=== PATIENT | female | born 2000 | race Caucasian/White ===

== ENCOUNTER 2022-09-06 09:35 | Inpatient (IN) | payer OTHER, SELFPAY ==
[2022-09-06] VITALS (11 sets, daily range): BP systolic 112–138; BP diastolic 57–88; PULSE 57–86; TEMP 35.9–36.9; O2SAT 98; BMI 39.0
[2022-09-06] MEDS: 0.9% Saline Lock 10 ML Syringe IV (10:55)
[2022-09-06 11:14] LABS: Absolute Lymphocyte Count 1.33 X10^3/uL (0.83-4.51); Absolute Neutrophil Count 5.3 X10^3/uL (2.0-7.7); Basophil# 0.02 X10^3/uL; Basophil% 0.3 % (0-1); Eosinophil# 0.03 X10^3/uL; Eosinophils% 0.4 % (0-5); Hematocrit 38.5 % (37-47); Lymphocyte # 1.33 X10^3/ul (0.83-4.51); Lymphocyte % 18.8 % (19-41); Mean Corp Hgb Conc 33.8 g/dL (32-36); Mean Corpuscular Hgb 27.5 pg (27.0-32.0); Mean Corpuscular Volume 81.4 fL (81-99); Mean Platelet Vol. 9.2 fl (6.2-12.0); Monocyte# 0.41 X10^3/uL; Monocyte% 5.8 % (0-10); NRBC Flagged by Analyzer 0 % (0-5); Neutrophil # 5.27 X10^3/uL (2.7-7.7); Neutrophil % 74.3 % (47-70); Platelet Count 177 K/mm3 (150-450); RBC Distribution Width CV 13.2 % (11.6-14.6); Red Blood Count 4.73 M/mm3 (4.2-5.4); White Blood Count 7.1 K/mm3 (4.4-11.0)
[2022-09-06] MEDS: miSOPROStol 25 MCG TABLET PO ×2 (11:53→16:20)
--- NOTE | 2022-09-06 11:55 | HP.PCM.OB_ITS ---
HPI - General General Date of Admission: 09/06/22 HPI Narrative MARIEL ARANDA, is a 21 F at 40.1 weeks gestation who presents for elective induction of labor. complicated by obesity, rubella non- immune status, GBS positive and history of depression. Patient was scheduled for induction earlier this week but due to unit acuity was bumped to today due to being elective. Maternal Data Information MARINA Calculator Estimated Delivery Date Method Current WG Current Estimate 09/05/22 Manual 40w 1d PFSH PFS Medical History (Updated 09/06/22 @ 18:07 by Rhonda Vo CNM) Depression Home Medications PNV 153-FA 400 mcg-om3 35 mg-dha 25 mg-epa 5 mg-fish oil chew tablet ( Gummies) 2 tab PO DAILY 09/06/22 [History Last Taken 2 Days Ago ~09/04/22] aspirin 81 mg chewable tablet 81 mg PO DAILY elevated bp 09/06/22 [History Last Taken 09/05/22 20:00] ferrous sulfate 325 mg (65 mg iron) tablet 325 mg PO QODAY low iron 09/06/22 [History Last Taken 1 Day Ago ~09/05/22] melatonin 2.5 mg-passion flower-lemon balm chewable tablet (Unisom Simple Slumbers) 1 tab PO PRN PRN Insomnia 09/06/22 [History Last Taken 3 Weeks Ago ~08/16/22] vitamin B6-vitamin E-magnesium tablet 1 tab PO QODAY PRN Nausea 09/06/22 [History Last Taken 1 Week Ago ~08/30/22] Allergy/AdvReac Type Severity Reaction Status Date / Time No Known Allergies Allergy Verified 09/06/22 11:44 Social History Smoking Status: Former smoker History Elective abortions Hx Para 0 Spontaneous abortions Hx # Term Pregnancies Ectopic pregnancies Hx # Pregnancies Multiple births # of living children Visit Details OB Flowsheet Initial Weight: Not Recorded Date -?-?-?-?-?-?-?-?-?-?-?-?- EGA Weight BP Urine Prot -?-?-?-?-?-?-?-?-?-?-?-?- Glucose FHR FuHt Pres Dilation -?-?-?-?-?-?-?-?-?-?-?-?- Effaced St Visit Note 09/06/22 -?-?-?-?-?-?-?-?-?-?-?-?- 40w 1d 264 lb 5.348 oz 121/ 67 112/57 114/57 -?-?-?-?-?-?-?-?-?-?-?-?- -?-?-?-?-?-?-?-?-?-?-?-?- NST FHR Rate Baby A Baseline: 125 Variability:: Moderate Accelerations:: 15 x 15 Decelerations:: None NST Reactive:: Yes FHR Category:: Category I Uterine Activity:: none noted ROS Eyes Eyes: Denies blurry vision, change in vision or spots in vision ENT HEENT: Denies dizziness or headache(s) Cardiovascular Cardiovascular: Denies abdominal pain, chest pain or dyspnea Respiratory/Chest Respiratory/Chest: Denies cough, dyspnea, shortness of breath at rest or shortness of breath with exertion Gastrointestinal Gastrointestinal: Denies abdominal pain, diarrhea or vomiting Genitourinary Genitourinary: Denies change in urinary stream, difficulty urinating or dysuria Musculoskeletal Musculoskeletal: Reports none Integumentary Integumentary: Denies rash Neurologic Neurologic: Denies dizziness, headache(s), memory loss or weakness Psychiatric Psychiatric: Reports none Vital Signs Vital Signs Vital Signs: 09/06/22 10:00 09/06/22 10:00 09/06/22 09:59 Temperature 98.4 F Temperature Source Pulse Rate 85 Blood Pressure 121/67 H BP Systolic 121 BP Diastolic 67 Pulse Ox 09/06/22 10:00 09/06/22 10:00 09/06/22 10:00 Temperature Temperature Source Temporal Pulse Rate 86 Blood Pressure BP Systolic BP Diastolic Pulse Ox 98 09/06/22 10:00 09/06/22 12:28 09/06/22 12:29 Temperature 98.5 F 97.9 F Temperature Source Pulse Rate Blood Pressure 112/57 L BP Systolic 112 BP Diastolic 57 Pulse Ox 09/06/22 12:29 09/06/22 16:07 09/06/22 16:07 Temperature Temperature Source Pulse Rate 80 75 Blood Pressure 114/57 L BP Systolic 114 BP Diastolic 57 Pulse Ox 09/06/22 16:09 Temperature 97.7 F L Temperature Source Pulse Rate Blood Pressure BP Systolic BP Diastolic Pulse Ox Weight Weight: 264 lb 5.348 oz Body Mass Index (BMI) 39.0 Physical Exam Const alert, oriented x3 and no apparent distress General Appearance: cooperative Orientation / Consciousness: awake Exam Limitations: no limitations HEENT normocephalic Head and Scalp: normal to inspection Eyes General Eye: normal appearance of both eyes Neck full ROM and no lymphadenopathy Lymph Lymphatic: no lymphadenopathy noted Chest inspection of chest normal Resp normal respiratory effort, normal air movement and clear to auscultation bilaterally Effort and Inspection: able to speak in complete sentences and symmetric chest movement Cardio regular rate and regular rhythm GI normal to inspection, nondistended, normoactive bowel sounds Back/Spine normal ROM Extremity full ROM and no calf tenderness Skin no rashes or lesions noted General Skin Exam: no breakdown Neuro oriented x3 and CN's II-XII intact bilaterally Psych mental status grossly normal and thought process normal Labs Labs Labs: Blood Type A NEGATIVE Antibody Screen NEGATIVE Hct 38.5 % (37-47) Hgb 13.0 g/dL (12.0-15.0) Assessment & Plan (1) 40 weeks gestation of : (2) Encounter for planned induction of labor: (3) Obesity affecting : (4) Rubella non-immune status, antepartum: (5) Positive GBS test: (6) Depression: COMMENT: no medications (7) Rh negative status during : PLAN: Plan Admit to L&D CE- 0.5/60/-3 Cat. 1 tracing, reactive Start IV and run fluids per orders Routine labs Start Cytotec 25 mcg PO every 4 hours CE prior to cytotec doses GBS positive- Start PCN 5 million units IV x 1 now and continue PCN 3 million units IV every 4 hours until delivery Pain medications if indicated Dr. Bhatia notified of admission and is collaborating physician
[2022-09-06] MEDS: 0.9% Normal Saline Single 100 ML IV.SOLN. INTRA-UTER (15:34)
--- NOTE | 2022-09-06 15:43 | PCM.PN.BLA ---
Progress Note Pt doing well. Cramping with Cytotec. Physical Exam Const alert and no apparent distress General Appearance: comfortable Narrative: Cvx 1/t/h, posterior Assessment & Plan Assessment/Plan (1) Encounter for planned induction of labor: PLAN: TAUS performed at bedside confirming vertex presentation. Cvx 1/t/h, posterior s/p 1 dose of Cytotec. Intracervical carnes placed in usual fashion and filled with 40 cc saline. Will give 2nd dose of Cytotec around 1600. (2) 40 weeks gestation of : (3) Obesity affecting :
[2022-09-06] MEDS: LACTATED RINGERS 500 ML 999 ML IV (17:20)
[2022-09-06] MEDS: Ondansetron 4 MG/2 ML Vial IV (17:24)
[2022-09-06] MEDS: fentaNYL 100 MCG/2 ML Ampul IV (17:33)
[2022-09-06] MEDS: Lactated Ringers 1,000 ML 50 ML IV (17:52)
[2022-09-06] MEDS: Acetaminophen 500 MG Tablet PO (20:28)
[2022-09-06] MEDS: Mag Hydrox/Al Hydrox/Simeth 30 ML UDC PO (22:19)
[2022-09-06] MEDS: Oxytocin 15 Units/NS 250ml 15 UNITS/250 ML IV.SOLN 2 UNITS IV (22:40)
[2022-09-07] VITALS (90 sets, daily range): BP systolic 106–156; BP diastolic 53–80; PULSE 58–116; RESP 18; TEMP 35.9–36.8; O2SAT 92–100
[2022-09-07] MEDS: 0.9% Saline Lock 10 ML Syringe IV ×2 (00:55→19:06)
[2022-09-07] MEDS: fentaNYL 100 MCG/2 ML Ampul IV (00:55)
[2022-09-07] MEDS: Ondansetron 4 MG/2 ML Vial IV (01:48)
[2022-09-07] MEDS: LACTATED RINGERS 500 ML 999 ML IV ×4 (01:54→14:31)
[2022-09-07] MEDS: fentaNYL-bupivacaine (epidural) 100 ML BAG EPIDURAL ×3 (02:44→12:04)
[2022-09-07] MEDS: Penicillin G 3,000,000 Units 50 ML 100 UNITS IV ×3 (03:11→12:04)
[2022-09-07] MEDS: Mag Hydrox/Al Hydrox/Simeth 30 ML UDC PO ×2 (03:52→10:20)
[2022-09-07] MEDS: Lactated Ringers 1,000 ML 200 ML IV ×3 (05:02→13:14)
--- NOTE | 2022-09-07 06:55 | PCM.PN.BLA ---
Progress Note Patient seen at bedside. Comfortable with epidural. Assessment & Plan Assessment/Plan (1) 40 weeks gestation of : (2) Encounter for planned induction of labor: (3) Obesity affecting : PLAN: Plan CE- 5//-2 AROM for moderate amount of meconium stained fluid IUPC placed deceleration due to patient being on back- resolved with position change, fluid bolus, Pitocin off and O2 10 liters via face mask Continue expectant care Dr. Jas valdes who is taking over management of patient
--- NOTE | 2022-09-07 08:33 | PN.OBGYN_ITS ---
Subjective Subjective Patient comfortable with epidural Objective Data Objective Data Vital Signs: Vital Signs Temp Pulse BP Pulse Ox 97.0 F L 84 118/56 L 100 09/07/22 07:36 09/07/22 08:29 09/07/22 07:35 09/07/22 08:29 Weight: 264 lb 5.348 oz Body Mass Index (BMI) 39.0 Intake & Output: Intake and Output for Last 24 Hours 09/05/22 09/06/22 09/07/22 23:59 23:59 23:59 Intake Total 2000.00 / 1999.00 2650.01 / 2650.01 Output Total 1350 / 1350 400 / 400 Balance 650.00 / 650.00 2250.01 / 2250.01 Lab / Micro Data Result Diagrams: 09/06/22 10:55 Labs: Laboratory Results - last 24 hr 09/06/22 10:55: WBC 7.1, RBC 4.73, Hgb 13.0, Hct 38.5, MCV 81.4, MCH 27.5, MCHC 33.8, RDW Std Deviation 39.0, RDW Coeff of Tony 13.2, Plt Count 177, MPV 9.2, Immature Gran % (Auto) 0.400, Neut % (Auto) 74.3 H, Lymph % (Auto) 18.8 L, [place] % (Auto) 5.8, Eos % (Auto) 0.4, Baso % (Auto) 0.3, Absolute Neuts (auto) 5.3, Absolute Lymphs (auto) 1.33, Nucleated RBC % 0 09/06/22 10:55: Blood Type A NEGATIVE, Antibody Screen NEGATIVE Physical Exam Narrative: cvx 6/90/0, s/p AROM by Cplotts at 06:45 when patient was 5/80/-2 NST FHR Rate Baby A Baseline: 110 Variability:: Moderate Accelerations:: 15 x 15 Decelerations:: Late (have resolved) and Variable (occasional) Uterine Activity:: Q4 Assessment & Plan (1) Obesity affecting : COMMENT: @ 40&2 PLAN: Plan Continue expectant management Overall reassuring monitoring
[2022-09-07] MEDS: Methylergonovine 0.2 MG/ML Ampul IM (15:36)
--- NOTE | 2022-09-07 15:47 | EX.PCM.OBRPT ---
Maternal Data Information MARINA Calculator Estimated Delivery Date Method Current WG Current Estimate 09/05/22 Manual 40w 2d Vaginal Delivery Maternal Presentation Maternal Presentation: Elective Induction Type of Induction: Pitocin, Silva Bulb, Amniotomy and Cytotec Operative Information Date of Procedure: 09/07/22 Pre-Operative Diagnosis: Obesity Post-Operative Diagnosis: Same Surgery / Procedure Performed: Spontaneous Vaginal Delivery Type of Anesthesia: Epidural Estimated Blood Loss: 500ml Findings Description of Procedure: Patient prepped & draped when C/C/+2. She pushed well to deliver the head. head gently guided to allow delivery of anterior and posterior shoulders. No excess traction placed on head. Body delivered and 3VC clamped & cut in delayed fashion. Placenta delivered with gentle traction and good uterine tone obtained. Presentation: Vertex Amniotic Membrane Rupture Type: Artificial Amniotic Fluid Description: Moderate meconium Placental Delivery Description: Expressed Placenta Disposition: [facility] Specimen(s) Removed: Placenta Cord Vessel Description: 3 Vessels Cord Entanglement: Around neck x 1, loose Nuchal Cord Compression: Without compression A Gender: Female (1 minute): 8 (5 minute): 9 Delayed Cord Clamping: Yes Post Vaginal Delivery Medications Given After Delivery: IV Pitocin and IM Methergin Episiotomy Description: None Laceration: 1st degree (vaginal repaired - with 3-0 vicryl) Complication Complications: None
[2022-09-07] MEDS: Oxytocin 15 Units/NS 250ml 15 UNITS/250 ML IV.SOLN 83 UNITS IV (15:58)
[2022-09-07] MEDS: Ibuprofen 600 MG Tablet PO (17:59)
[2022-09-08] VITALS (10 sets, daily range): BP systolic 107–121; BP diastolic 53–75; PULSE 73–89; RESP 16–18; TEMP 36.1–36.6; O2SAT 98–99
[2022-09-08] MEDS: Ibuprofen 600 MG Tablet PO ×3 (00:17→13:32)
--- NOTE | 2022-09-08 16:16 | PCM.PN.OB ---
Subjective Subjective Denies complaints Objective Data Objective Data Vital Signs: Vital Signs Temp Pulse Resp BP Pulse Ox O2 Del Method 97.3 F L 87 16 121/75 H 98 Room Air 09/08/22 13:05 09/08/22 16:14 09/08/22 13:04 09/08/22 16:14 09/08/22 16:13 09/08/22 13:04 Oxygen Delivery Method Room Air Weight: 264 lb 5.348 oz Body Mass Index (BMI) 39.0 Intake & Output: Intake and Output for Last 24 Hours 09/06/22 09/07/22 09/08/22 23:59 23:59 23:59 Intake Total 2000.00 / 1999.00 4405.00 / 4405.00 Output Total 1350 / 1350 1550 / 1550 300 / 300 Balance 650.00 / 650.00 2855.00 / 2855.00 -300 / -300 Lab / Micro Data Result Diagrams: 09/06/22 10:55 Labs: Laboratory Results - last 24 hr 09/08/22 01:10: Screen NEGATIVE, Baby's Blood Type A POSITIVE, Baby's ANGELICA NEGATIVE Physical Exam Const alert, oriented x3 and no apparent distress HEENT normocephalic GI soft to palpation, non-tender and non-distended GI Narrative: fundus firm, mid & below umbilicus Extremity normal to inspection and no calf tenderness Assessment & Plan (1) Obesity affecting : COMMENT: PPD#1 PLAN: Plan D/c home
--- NOTE | 2022-09-08 16:17 | DCINST_ITS ---
Discharge Instructions Diet Discharge Diet: No restrictions Activity Discharge Activity: May Shower May resume sexual activity in: 6 weeks Weight Bearing Status: Weight bearing as tolerated Dressing / Incision Call your doctor if you observe: Fever of 101 or Higher, Coldness, Increased Pain, Change in Color, Inability to urinate, Inability to have a bowel movement, Using more than 1 pad per hour, Shortness of breath, Dizziness, Fainting spells, Chest pain, Increased palpitations (irregular heartbeat), Calf discomfort and Uncontrolled pain Follow Up Care Please Follow Up With: Isaias Mark MD When: Follow up in 2 and 6 weeks for visits. Test Results: Test results from this visit will be discussed in further detail at your follow- up appointment, if applicable. Discharge Plan Admission Admit Date/Time: 09/06/22 09:35 Primary Reason for Your Visit: Vaginal delivery Attending Provider: Isaias Mark Primary Care Provider: Agnes Boyer Primary Discharge Orders/Prescriptions Prescriptions: New acetaminophen 500 mg Tablet 1,000 mg PO Q6H PRN PRN (Reason: Pain 1-10 Or Fever) Qty: 0 0RF ibuprofen 600 mg Tablet 600 mg PO Q6H PRN PRN (Reason: Pain Score 1-3) Qty: 0 0RF Continued Gummies 400 mcg-35 mg- 25 mg-5 mg Tablet,Chewable 2 tab PO DAILY Discontinued ferrous sulfate 325 mg (65 mg iron) Tablet 325 mg PO QODAY aspirin [Baby Aspirin] 81 mg Tablet,Chewable 81 mg PO DAILY vitamin B6-vitamin E-magnesium Tablet 1 tab PO QODAY PRN (Reason: Nausea) Unisom Simple Slumbers 2.5 mg Tablet,Chewable 1 tab PO PRN PRN (Reason: Insomnia) Referrals / Follow Up: Care Physician,No Primary [Primary Care Provider] - Disposition Disposition (needs filled in before D/C Order can be placed): Home, Self Care
== END 2022-09-08 17:00 | disposition home or self-care (01) | DRG 807 ==
PROVIDERS: Advanced Practice Midwife; Admitting Provider Obstetrics & Gynecology; Visit Provider Obstetrics & Gynecology
DX: O48.0 Post-term pregnancy (principal); Z37.0 Single live birth; E66.9 Obesity, unspecified; O99.214 Obesity complicating childbirth; O77.0 Labor and delivery complicated by meconium in amniotic fluid; Z3A.40 40 weeks gestation of pregnancy; O76 Abnormality in fetal heart rate and rhythm complicating labor and delivery; O99.824 Streptococcus B carrier state complicating childbirth; Z79.82 Long term (current) use of aspirin; Z87.891 Personal history of nicotine dependence; O70.0 First degree perineal laceration during delivery
CPT/HCPCS: 59025; 59050; 76815; 85025; 85461; 86850; 86900; 86901; 99221; J7120; A4216; G0378; J2405; J2790

== ENCOUNTER 2022-11-10 19:04 | Emergency (ER) | payer OTHER, SELFPAY ==
[2022-11-10 19:05] VITALS: BP 146/75; PULSE 79; RESP 14; TEMP 36.1; O2SAT 100; BMI 40.8
--- NOTE | 2022-11-10 19:20 | EKG12_ITS ---
Test Reason : Blood Pressure : / mmHG Vent. Rate : 071 BPM Atrial Rate : 071 BPM P-R Int : 112 ms QRS Dur : 076 ms QT Int : 382 ms P-R-T Axes : 013 053 043 degrees QTc Int : 415 ms Normal sinus rhythm Normal ECG Confirmed by BRETT FAITH, ASH ([id number]), assistant film editor JUAN CALIXTO ([id number]) on 11/12/2022 12:10:21 P M Referred By: Confirmed By:COOKIE WEST MD
--- NOTE | 2022-11-10 19:30 | EKG12_ITS ---
Test Reason : Blood Pressure : / mmHG Vent. Rate : 065 BPM Atrial Rate : 065 BPM P-R Int : 122 ms QRS Dur : 082 ms QT Int : 390 ms P-R-T Axes : 016 051 042 degrees QTc Int : 405 ms Normal sinus rhythm Normal ECG No previous ECGs available Confirmed by RON FAITH, MARILUZ ([id number]), scientific publications editor JUAN CALIXTO ([id number]) on 11/14/2022 8:29:15 AM Referred By: Confirmed By:MARILUZ VELASQUEZ MD
--- NOTE | 2022-11-10 19:37 | ED.VIS.CHEST ---
HPI <Walker You MD - Last Filed: 11/10/22 21:19> History of Present Illness Chief Complaint: Chest Pain Narrative Narrative: 21-year-old female who denies significant past medical history presents with back tightness and chest tightness that she has had since 10 AM. She states her back started feeling tight, then it moved to the middle of her chest. She denies any diaphoresis, no nausea or vomiting, but she feels short of breath. She denies any leg swelling. No fevers or chills. No cough. She thinks that her grandfather had a heart attack a few years ago. No family history of early coronary artery disease. She denies any DVT or PE risk factors. No true exacerbating or alleviating factors to her chest tightness. She states that she took a shower earlier, and felt better until she got out of the shower. She took 2 full-strength aspirin which did not alleviate her pain. She recently took Tylenol to help alleviate her tightness in her chest and back. PFSH <Walker Yuo MD - Last Filed: 11/10/22 21:19> PFSH Medical History Depression Rh negative status during Home Medications PNV 153-FA 400 mcg-om3 35 mg-dha 25 mg-epa 5 mg-fish oil chew tablet ( Gummies) 2 tab PO DAILY 09/06/22 [History Last Taken 2 Days Ago ~09/04/22] acetaminophen 500 mg tablet 1,000 mg PO Q6H PRN PRN Pain 1-10 Or Fever #0 tabs 09/08/22 [Rx Last Taken Unknown] ibuprofen 600 mg tablet 600 mg PO Q6H PRN PRN Pain Score 1-3 #0 tabs 09/08/22 [Rx Last Taken Unknown] Allergy/AdvReac Type Severity Reaction Status Date / Time No Known Allergies Allergy Verified 11/10/22 19:05 Social History Smoking Status: Former smoker ROS <Walker You MD - Last Filed: 11/10/22 21:19> ROS ED ROS Narrative Constitutional: No fever, no chills. HEENT: No sore throat. No neck pain. No loss of vision. No rhinorrhea. Cardiovascular: Thoracic back tightness, central substernal chest tightness/chest pain. No palpitations. No pedal edema. Respiratory: No cough, mild shortness of breath. Abdominal: No abdominal pain. No nausea. No vomiting. Genitourinary: No dysuria. No hematuria. Musculoskeletal: No myalgias. No arthralgias. Neurologic: No headaches. No dizziness. No lightheadedness. Skin: No rash. No change in color. Psychiatric: No depression. No anxiety. EXAM <Walker You MD - Last Filed: 11/10/22 21:19> Physical Exam Narrative Exam Narrative: Afebrile. Vital signs noted. HEENT: Normocephalic. Atraumatic. PERRL, EOMI. Neck soft and supple. No point tenderness or step off. Cardiovascular: Regular rate and rhythm. No murmurs, rubs, or gallops appreciated. Respiratory: No tachypnea. Lungs clear to auscultation bilaterally. Gastrointestinal: Abdomen soft, nontender, with normoactive bowel sounds. No rebound or guarding. Neurological: Awake. Alert. Nonfocal, nonlateralizing. Skin: No rash. Normal color. No pallor. Musculoskeletal: No pedal edema. Full range of motion extremities. Const Vital Signs: 11/10/22 19:05 11/10/22 19:43 11/10/22 19:43 Temperature 97 F L Temperature Source Temporal Pulse Rate 79 Respiratory Rate 14 Blood Pressure 146/75 H Blood Pressure Mean 98 Pulse Ox 100 Oxygen Delivery Method Room Air Room Air Room Air 11/10/22 20:28 Temperature Temperature Source Pulse Rate 57 L Respiratory Rate 15 Blood Pressure 125/71 H Blood Pressure Mean 89 Pulse Ox 99 Oxygen Delivery Method Room Air <Dr. Margie Chambers MD - Last Filed: 11/10/22 22:35> Physical Exam Const Vital Signs: 11/10/22 19:05 11/10/22 19:43 11/10/22 19:43 Temperature 97 F L Temperature Source Temporal Pulse Rate 79 Respiratory Rate 14 Blood Pressure 146/75 H Blood Pressure Mean 98 Pulse Ox 100 Oxygen Delivery Method Room Air Room Air Room Air 11/10/22 20:28 Temperature Temperature Source Pulse Rate 57 L Respiratory Rate 15 Blood Pressure 125/71 H Blood Pressure Mean 89 Pulse Ox 99 Oxygen Delivery Method Room Air <Walker You MD - Last Filed: 11/10/22 21:19> Heart Score History: Slightly/Non-Suspicious ECG: Normal Age: </= 45 years Risk Factors: No Risk Factors Troponin: </= Normal Limit Score: 0 <Dr. Margie Chambers MD - Last Filed: 11/10/22 22:35> Heart Score Score: 0 MDM <Walker You MD - Last Filed: 11/10/22 21:19> [facility] Narrative Medical decision making narrative: In the differential diagnosis is acute coronary syndrome versus pulmonary embolism versus bronchospasm. Bronchospasm is less likely as her pulse ox is 100% on room air, and she has no auscultated wheezing and is moving a good amount of air. Pulmonary embolism is also lower on the differential because she is essentially PERC negative, pulse ox 100% on room air, and she denies any DVT/PE risk factors. Additionally, it is less likely coronary artery syndrome/STEMI as she has an EKG interpreted by myself that shows normal sinus rhythm at 71 bpm without ectopy or acute ST changes. No STEMI. No ischemic changes. As her EKG is negative and she is at a young age, it is less likely a STEMI. Regardless, comprehensive work-up was pursued. She has already taken full-strength aspirin. I will obtain a chest x-ray as well as lab work including CBC, BMP, and troponin with 2-hour troponin for delta, and a D-dimer. I reviewed the patient's laboratory work. She has a normal white count of 6.6, hemoglobin slightly anemic at 11.4 with hematocrit 35.5. Normal platelet count of 255. D-dimer is negative at 0.31. In review of her BMP, she has normal sodium of 141, normal potassium of 3.9, with chloride slightly elevated at 109. BUN is normal at 14 with creatinine 0.8. Initial high-sensitivity troponin is 4. I will obtain a delta troponin. I have low suspicion for pulmonary embolism given the negative D-dimer, and bradycardia with pulse ox 99 to 100% on room air. I interpreted her single view chest x-ray as no pneumothorax or no pneumonia. I reviewed the radiology report which confirmed my independent interpretation. At this point in time, upon repeat examination she states she still felt tightness in her back and chest which was more muscular. She is not having problems with shortness of breath coming from her lungs. She was administered Toradol 30 mg intravenously and an oral muscle relaxer in the form of Flexeril 10 mg intravenously should she be having muscular back tightness. At this point in time, she will be signed out to the oncoming physician, Dr. Margie Chambers, to check the delta troponin. I feel that as long as it is negative that she could be discharged to follow-up with her primary care physician. She has a low heart score. Disposition is pending repeat troponin. Patient is in stable condition. History & Record Review Discussion w/independent historian: Patient and Significant other Additional record(s) reviewed:: Prior inpatient record (Noncontributory, from [facility]) Lab Data Attestation: I reviewed the patient's lab results. Labs: Laboratory Results - last 24 hr 11/10/22 11/10/22 11/10/22 19:30 19:30 19:30 WBC 6.6 RBC 4.48 Hgb 11.4 L Hct 35.5 L MCV 79.2 L MCH 25.4 L MCHC 32.1 RDW Std Deviation 37.4 RDW Coeff of Tony 13.2 Plt Count 225 MPV 8.9 Immature Gran % (Auto) 0.200 Neut % (Auto) 55.3 Lymph % (Auto) 35.4 [place] % (Auto) 7.4 Eos % (Auto) 1.1 Baso % (Auto) 0.6 Absolute Neuts (auto) 3.7 Absolute Lymphs (auto) 2.35 Nucleated RBC % 0 D-Dimer Quant (PE/DVT) 0.31 Sodium 141 Potassium 3.9 Chloride 109 H Carbon Dioxide 24.0 Anion Gap 8 BUN 14 Creatinine 0.80 Estim Creat Clear Calc 106.36 Est GFR (MDRD) Af Amer 113 Est GFR (MDRD) Non-Af 94 BUN/Creatinine Ratio 17.5 Glucose 96 Calcium 9.2 Troponin I High Sens 4 11/10/22 21:47 WBC RBC Hgb Hct MCV MCH MCHC RDW Std Deviation RDW Coeff of Tony Plt Count MPV Immature Gran % (Auto) Neut % (Auto) Lymph % (Auto) [place] % (Auto) Eos % (Auto) Baso % (Auto) Absolute Neuts (auto) Absolute Lymphs (auto) Nucleated RBC % D-Dimer Quant (PE/DVT) Sodium Potassium Chloride Carbon Dioxide Anion Gap BUN Creatinine Estim Creat Clear Calc Est GFR (MDRD) Af Amer Est GFR (MDRD) Non-Af BUN/Creatinine Ratio Glucose Calcium Troponin I High Sens 5 Radiography Diagnostic Testing: Clinical Impression(s) from Imaging Studies Chest X-Ray 11/10/22 19:45 IMPRESSION: No radiographic evidence of acute cardiopulmonary disease. Electronically Signed: Juan Glez MD at 20:16 EDT , <Dr. Margie Chambers MD - Last Filed: 11/10/22 22:35> [facility] Lab Data Labs: Laboratory Results - last 24 hr 11/10/22 11/10/22 11/10/22 19:30 19:30 19:30 WBC 6.6 RBC 4.48 Hgb 11.4 L Hct 35.5 L MCV 79.2 L MCH 25.4 L MCHC 32.1 RDW Std Deviation 37.4 RDW Coeff of Tony 13.2 Plt Count 225 MPV 8.9 Immature Gran % (Auto) 0.200 Neut % (Auto) 55.3 Lymph % (Auto) 35.4 [place] % (Auto) 7.4 Eos % (Auto) 1.1 Baso % (Auto) 0.6 Absolute Neuts (auto) 3.7 Absolute Lymphs (auto) 2.35 Nucleated RBC % 0 D-Dimer Quant (PE/DVT) 0.31 Sodium 141 Potassium 3.9 Chloride 109 H Carbon Dioxide 24.0 Anion Gap 8 BUN 14 Creatinine 0.80 Estim Creat Clear Calc 106.36 Est GFR (MDRD) Af Amer 113 Est GFR (MDRD) Non-Af 94 BUN/Creatinine Ratio 17.5 Glucose 96 Calcium 9.2 Troponin I High Sens 4 11/10/22 21:47 WBC RBC Hgb Hct MCV MCH MCHC RDW Std Deviation RDW Coeff of Tony Plt Count MPV Immature Gran % (Auto) Neut % (Auto) Lymph % (Auto) [place] % (Auto) Eos % (Auto) Baso % (Auto) Absolute Neuts (auto) Absolute Lymphs (auto) Nucleated RBC % D-Dimer Quant (PE/DVT) Sodium Potassium Chloride Carbon Dioxide Anion Gap BUN Creatinine Estim Creat Clear Calc Est GFR (MDRD) Af Amer Est GFR (MDRD) Non-Af BUN/Creatinine Ratio Glucose Calcium Troponin I High Sens 5 Radiography Diagnostic Testing: Clinical Impression(s) from Imaging Studies Chest X-Ray 11/10/22 19:45 IMPRESSION: No radiographic evidence of acute cardiopulmonary disease. Electronically Signed: Juan Glez MD at 20:16 EDT , Treatment and Re-Evaluation :: Patient signed out to me pending delta troponin. Repeat troponin returns at 5, initial troponin 4. Patient will be discharged to home per Dr. You's plan. Discharge Plan Triage Chief Complaint: Chest Pain ED Provider: Walker You Dx/Rx/DC Orders Clinical Impression: Chest pain, Back tightness, Shortness of breath Instructions: ED Chest Pain, Uncertain Cause, ED Dyspnea, ED Pain, Acute, Uncertain Cause Prescriptions: No Action Gummies 400 mcg-35 mg- 25 mg-5 mg Tablet,Chewable 2 tab PO DAILY acetaminophen 500 mg Tablet 1,000 mg PO Q6H PRN PRN (Reason: Pain 1-10 Or Fever) Qty: 0 0RF ibuprofen 600 mg Tablet 600 mg PO Q6H PRN PRN (Reason: Pain Score 1-3) Qty: 0 0RF Primary Care Provider: Care Physician,No Primary Referrals: Joyce Bee MD [Med Staff - Active Staff] - As Needed Care Physician,No Primary [Primary Care Provider] - Disposition Disposition: Home, Self Care
[2022-11-10] MEDS: 0.9% Normal Saline 1,000 ML 1000 ML IV (19:41)
[2022-11-10 19:44] LABS: Absolute Lymphocyte Count 2.35 X10^3/uL (0.83-4.51); Absolute Neutrophil Count 3.7 X10^3/uL (2.0-7.7); Basophil# 0.04 X10^3/uL; Basophil% 0.6 % (0-1); Eosinophil# 0.07 X10^3/uL; Eosinophils% 1.1 % (0-5); Hematocrit 35.5 % (37-47); Hemoglobin 11.4 g/dL (12.0-15.0); Lymphocyte # 2.35 X10^3/ul (0.83-4.51); Lymphocyte % 35.4 % (19-41); Mean Corp Hgb Conc 32.1 g/dL (32-36); Mean Corpuscular Hgb 25.4 pg (27.0-32.0); Mean Corpuscular Volume 79.2 fL (81-99); Mean Platelet Vol. 8.9 fl (6.2-12.0); Monocyte# 0.49 X10^3/uL; Monocyte% 7.4 % (0-10); NRBC Flagged by Analyzer 0 % (0-5); Neutrophil # 3.68 X10^3/uL (2.7-7.7); Neutrophil % 55.3 % (47-70); Platelet Count 225 K/mm3 (150-450); RBC Distribution Width CV 13.2 % (11.6-14.6); RBC Distribution Width SD 37.4 fl (35.1-43.9); Red Blood Count 4.48 M/mm3 (4.2-5.4); White Blood Count 6.6 K/mm3 (4.4-11.0)
--- NOTE | 2022-11-10 19:45 | RAD_ITS ---
EXAM: XR CHEST, 1 VIEW CLINICAL INDICATION: chest pain TECHNIQUE: Frontal view of the chest. This report was created using [employer] report generation technology. COMPARISON: None. FINDINGS: LUNGS AND PLEURAL SPACES: Unremarkable. No consolidation or edema. No pneumothorax. No effusion. HEART: Unremarkable. Cardiac silhouette not enlarged. MEDIASTINUM: Central airways and mediastinal contour are unremarkable. BONES/JOINTS: Unremarkable. SOFT TISSUES: Unremarkable. RAD/Chest 1 View (Portable) IMPRESSION: No radiographic evidence of acute cardiopulmonary disease. Electronically Signed: Juan Glez MD at 20:16 EDT ,
[2022-11-10 19:57] LABS: D-Dimer Quantitative (DVT/PE) 0.31 FEU/ug/m (0.27-0.49)
[2022-11-10 19:59] LABS: Anion Gap 8 (5-15); BUN 14 mg/dL (7-18); BUN/Creat Ratio 17.5 RATIO (10-20); Calcium,Total 9.2 mg/dL (8.5-10.1); Chloride 109 mmol/L (98-107); EST Glomerular Filtration Rate 94 mL/min (>60); Est Glom Filt Rate - Afr Amer 113 mL/min (>60); Estimated Creatinine Clearance 106.36 ml/min; Glucose 96 mg/dL (74-106); Potassium 3.9 mmol/L (3.5-5.1); Sodium Level 141 mmol/L (136-145); Troponin-I HS (w/2H Reflex) 4 pg/mL (3.0-54.0)
[2022-11-10] MEDS: Ketorolac 30 MG/ML Syringe IV (20:27)
[2022-11-10] MEDS: cycloBENZAPRine HCl 10 MG Tablet PO (20:27)
[2022-11-10 20:28] VITALS: BP 125/71; PULSE 57; RESP 15; O2SAT 99
[2022-11-10 21:38] LABS: Reflex Troponin-HS? (from REC) Y
[2022-11-10 22:12] LABS: Troponin-I HS 5 pg/mL (3.0-54.0)
[2022-11-10 23:01] VITALS: PULSE 81; RESP 16; O2SAT 99
== END 2022-11-10 23:02 | disposition home or self-care (01) ==
PROVIDERS: Emergency Provider Emergency Medicine; Visit Provider Emergency Medicine
DX: R07.9 Chest pain, unspecified (principal); R06.02 Shortness of breath; Z87.891 Personal history of nicotine dependence
CPT/HCPCS: 71045; 80048; 84484; 85025; 85379; 93005; 96361; 96374; 99285; J7030; A4216

== ENCOUNTER 2022-12-31 22:47 | Emergency (ER) | payer OTHER, SELFPAY ==
[2022-12-31 22:47] VITALS: BP 152/115; PULSE 69; RESP 24; TEMP 36.4; O2SAT 98; BMI 40.6
--- NOTE | 2022-12-31 22:50 | EKG12_ITS ---
Test Reason : CP Blood Pressure : / mmHG Vent. Rate : 071 BPM Atrial Rate : 071 BPM P-R Int : 134 ms QRS Dur : 070 ms QT Int : 382 ms P-R-T Axes : 014 042 039 degrees QTc Int : 415 ms Normal sinus rhythm with sinus arrhythmia Normal ECG Confirmed by BRETT FAITH, ASH ([id number]), editor index JUAN CALIXTO ([id number]) on 01/01/2023 1:15:31 PM Referred By: AUGUSTO Confirmed By:COOKIE WEST MD
--- NOTE | 2022-12-31 23:20 | RAD_ITS ---
INDICATION: Chest pain. EXAMINATION/TECHNIQUE: X-RAY - XR Chest 1 View COMPARISON: November 10, 2022 chest x-ray. FINDINGS: LINES/DEVICES: None. LUNGS: No consolidation, edema or effusion. No pneumothorax. MEDIASTINUM AND CARDIOVASCULAR STRUCTURES: Cardiac silhouette not enlarged. Central airways and mediastinal contour are unremarkable. BONES AND SOFT TISSUES: Unremarkable for age. RAD/Chest 1 View (Portable) IMPRESSION: No acute cardiopulmonary disease. Electronically Signed: Miguel Ángel Sutton MD at 23:35 EDT ,
[2022-12-31 23:34] LABS: Absolute Lymphocyte Count 1.66 X10^3/uL (0.83-4.51); Absolute Neutrophil Count 7.1 X10^3/uL (2.0-7.7); Basophil# 0.06 X10^3/uL; Basophil% 0.6 % (0-1); Eosinophil# 0.03 X10^3/uL; Eosinophils% 0.3 % (0-5); Hemoglobin 12.3 g/dL (12.0-15.0); Lymphocyte # 1.66 X10^3/ul (0.83-4.51); Lymphocyte % 17.6 % (19-41); Mean Corp Hgb Conc 31.5 g/dL (32-36); Mean Corpuscular Hgb 23.7 pg (27.0-32.0); Mean Corpuscular Volume 75.1 fL (81-99); Monocyte# 0.36 X10^3/uL; Monocyte% 3.8 % (0-10); NRBC Flagged by Analyzer 0 % (0-5); Neutrophil # 7.08 X10^3/uL (2.7-7.7); Neutrophil % 75.4 % (47-70); Platelet Count 255 K/mm3 (150-450); RBC Distribution Width CV 13.3 % (11.6-14.6); RBC Distribution Width SD 35.5 fl (35.1-43.9); Red Blood Count 5.19 M/mm3 (4.2-5.4); White Blood Count 9.4 K/mm3 (4.4-11.0)
[2022-12-31 23:47] LABS: Anion Gap 8 (5-15); BUN 12 mg/dL (7-18); BUN/Creat Ratio 14.4 RATIO (10-20); Calcium,Total 9.4 mg/dL (8.5-10.1); Chloride 108 mmol/L (98-107); Creatinine, Serum 0.83 mg/dL (0.55-1.02); EST Glomerular Filtration Rate 90 mL/min (>60); Est Glom Filt Rate - Afr Amer 108 mL/min (>60); Estimated Creatinine Clearance 101.64 ml/min; Glucose 113 mg/dL (74-106); Potassium 3.7 mmol/L (3.5-5.1); Sodium Level 140 mmol/L (136-145); Troponin-I HS (w/2H Reflex) 4 pg/mL (3.0-54.0)
--- NOTE | 2023-01-01 01:32 | ED.VIS.GI ---
HPI HPI - GI History of Present Illness Chief Complaint: Abd Pain Informant: patient Narrative Narrative: Abdominal pain radiating up into her chest that started about 20 hours ago or so after eating at work and is gotten worse. Vomited once. She states actually the discomfort started in her upper back and her lower chest, and then in her upper abdomen it has persisted and gotten worse. No lower abdominal pain. No urinary symptoms. No fevers or chills. She did eat after the discomfort started, did not seem to change the discomfort. States that she has had some of this before but never this bad. No history of any abdominal surgeries in the past. [facility] Medical History Depression Rh negative status during Home Medications PNV 153-FA 400 mcg-om3 35 mg-dha 25 mg-epa 5 mg-fish oil chew tablet ( Gummies) 2 tab PO DAILY 09/06/22 [History Last Taken 2 Days Ago ~09/04/22] acetaminophen 500 mg tablet 1,000 mg PO Q6H PRN PRN Pain 1-10 Or Fever #0 tabs 09/08/22 [Rx Last Taken Unknown] ibuprofen 600 mg tablet 600 mg PO Q6H PRN PRN Pain Score 1-3 #0 tabs 09/08/22 [Rx Last Taken Unknown] Allergy/AdvReac Type Severity Reaction Status Date / Time No Known Allergies Allergy Verified 12/31/22 22:49 Social History Smoking Status: Former smoker ROS ROS ED Constitutional Constitutional ED: Denies chills or fever(s) Eyes Eyes: Denies change in vision or diplopia ENT ENT ED: Denies rhinorrhea or sore throat Cardiovascular Cardiovascular: Reports chest pain; Denies palpitations Respiratory/Chest Respiratory/Chest: Denies cough or dyspnea Gastrointestinal Gastrointestinal: Reports abdominal pain, nausea and vomiting; Denies diarrhea, hematemesis, hematochezia or melena Genitourinary Genitourinary ED: Denies dysuria or hematuria Musculoskeletal Musculoskeletal: Reports back pain; Denies neck pain Integumentary Denies abscess or rash Neurologic Neurologic: Denies headache(s), paresthesias or weakness Psychiatric Psychiatric: Denies anxiety or suicidal thoughts EXAM Physical Exam Const Vital Signs: 12/31/22 22:47 01/01/23 01:46 01/01/23 01:46 Temperature 97.5 F L Temperature Source Temporal Pulse Rate 69 15 L Respiratory Rate 24 H Blood Pressure 152/115 H 109/74 Blood Pressure Mean 127 85 Pulse Ox 98 99 99 Oxygen Delivery Method Room Air Room Air Room Air 01/01/23 03:02 Temperature Temperature Source Pulse Rate 67 Respiratory Rate 15 Blood Pressure 108/77 Blood Pressure Mean 87 Pulse Ox 99 Oxygen Delivery Method Room Air Positive well nourished, well developed and obese Constitutional Narrative: Uncomfortable but in no distress General Appearance ED: well developed and NAD Nutritional Appearance: obese HEENT Reports moist mucous membranes normocephalic and atraumatic Eyes PERRL and EOMs intact bilaterally Neck full ROM and supple Resp normal respiratory effort and clear to auscultation bilaterally Cardio regular rate, regular rhythm and no murmurs Rate: Negative for tachycardic GI non-distended GI Narrative: Very tender in the epigastrium. Less tender but still so in the right upper and left upper quadrants. No tenderness at or below the umbilicus. No guarding or rebound tenderness. Auscultation: normoactive bowel sounds Palpation: soft Back/Spine no CVA tenderness General Back: other FROM Extremity normal to inspection General Extremety ED: Negative for edema, pulses abnormal or tenderness General Extremity: Negative for edema or pulses abnormal Neuro oriented x3, CN's II-XII intact bilaterally and no sensory deficits noted Sensorium / Orientation: awake and alert Motor Exam: strength 5/5 throughout Psych Mood & Affect: anxious Skin no rashes or lesions noted and no wounds MDM MDM MDM Narrative Medical decision making narrative: Labs are normal, she was initially given GI cocktail and Zofran until I obtain the work-up, much of is placed by nursing by protocol which included chest x-ray, EKG, troponin, all of that is normal, 1 view chest x-ray my interpretation. The medications helped her some, but she was having waves of pain that would get worse. The patient presents late at night when ultrasound is not available. Therefore I did a bedside ultrasound of her gallbladder, it shows stones. She does not have a significant sonographic Horner's at this point nor does she have a grossly thickened gallbladder wall pericholecystic fluid that I can see but I am not able to verify this since I do not have the ability to do an ultrasound at this hour. She was additionally given Toradol and morphine. On reevaluation she is feeling much better, I reexamined her. She is heating and ventilating tender in the right upper quadrant, and nowhere else now. It is almost 5 AM, if she follows up as an outpatient she will need an ultrasound, she prefers to stay until the techs get here in the morning so that she can get the ultrasound done which I think is reasonable. Will be checked out to oncoming physician for final disposition after the ultrasound results, unless they show significant signs of acute cholecystitis, I expect the patient to be discharged with close outpatient surgical follow-up and fat-free diet, which we discussed, and she is comfortable with that plan. History & Record Review Discussion w/independent historian: Patient and Family Lab Data Attestation: I reviewed the patient's lab results. Labs: Laboratory Results - last 24 hr 12/31/22 12/31/22 12/31/22 23:20 23:20 23:20 WBC 9.4 RBC 5.19 Hgb 12.3 Hct 39.0 MCV 75.1 L MCH 23.7 L MCHC 31.5 L RDW Std Deviation 35.5 RDW Coeff of Tony 13.3 Plt Count 255 MPV 9.0 Immature Gran % (Auto) 2.300 H Neut % (Auto) 75.4 H Lymph % (Auto) 17.6 L Keith % (Auto) 3.8 Eos % (Auto) 0.3 Baso % (Auto) 0.6 Absolute Neuts (auto) 7.1 Absolute Lymphs (auto) 1.66 Nucleated RBC % 0 Sodium 140 Potassium 3.7 Chloride 108 H Carbon Dioxide 24.0 Anion Gap 8 BUN 12 Creatinine 0.83 Estim Creat Clear Calc 101.64 Est GFR (MDRD) Af Amer 108 Est GFR (MDRD) Non-Af 90 BUN/Creatinine Ratio 14.4 Glucose 113 H Calcium 9.4 Total Bilirubin 0.10 L Direct Bilirubin 0.06 AST 24 ALT 50 Alkaline Phosphatase 73 Troponin I High Sens 4 Total Protein 8.0 Albumin 3.7 Globulin 4.3 H Lipase 28 Serum , Qual 01/01/23 02:17 WBC RBC Hgb Hct MCV MCH MCHC RDW Std Deviation RDW Coeff of Tony Plt Count MPV Immature Gran % (Auto) Neut % (Auto) Lymph % (Auto) Keith % (Auto) Eos % (Auto) Baso % (Auto) Absolute Neuts (auto) Absolute Lymphs (auto) Nucleated RBC % Sodium Potassium Chloride Carbon Dioxide Anion Gap BUN Creatinine Estim Creat Clear Calc Est GFR (MDRD) Af Amer Est GFR (MDRD) Non-Af BUN/Creatinine Ratio Glucose Calcium Total Bilirubin Direct Bilirubin AST ALT Alkaline Phosphatase Troponin I High Sens Total Protein Albumin Globulin Lipase Serum , Qual NEGATIVE Radiography Diagnostic Testing: Clinical Impression(s) from Imaging Studies Chest X-Ray 12/31/22 23:20 IMPRESSION: No acute cardiopulmonary disease. Electronically Signed: Miguel Ángel Sutton MD at 23:35 EDT , Rhythm Strip Rhythm Strip: Sinus Rhythm Rate: 70 Ectopy: None EKG Initial EKG: Attestation: I personally reviewed and interpreted this EKG as follows: Interpretation: Sinus Rhythm and No Acute Injury Pattern Comments: nml EKG Discharge Plan Triage Chief Complaint: Abd Pain ED Provider: Damon Belcher Dx/Rx/DC Orders Clinical Impression: Biliary colic, Cholelithiasis Instructions: ED Diet, Low Fat, ED Gallstones with Biliary Colic Prescriptions: No Action Gummies 400 mcg-35 mg- 25 mg-5 mg Tablet,Chewable 2 tab PO DAILY acetaminophen 500 mg Tablet 1,000 mg PO Q6H PRN PRN (Reason: Pain 1-10 Or Fever) Qty: 0 0RF ibuprofen 600 mg Tablet 600 mg PO Q6H PRN PRN (Reason: Pain Score 1-3) Qty: 0 0RF Primary Care Provider: Care Physician,No Primary Referrals: Ilia Casillas MD [Med Staff - Active Staff] - As soon as possible (call for appt) Care Physician,No Primary [Primary Care Provider] - Disposition Disposition: Home, Self Care
[2023-01-01] MEDS: 0.9% Normal Saline 1,000 ML 999 ML IV (01:43)
[2023-01-01] MEDS: Mag Hydrox/Al Hydrox/Simeth 30 ML UDC PO (01:44)
[2023-01-01] MEDS: Ondansetron 4 MG/2 ML Vial IV (01:44)
[2023-01-01 01:46] VITALS: BP 109/74; PULSE 15; O2SAT 99
[2023-01-01 01:59] LABS: AST(SGOT) 24 U/L (15-37); Alanine Aminotransfer ALT/SGPT 50 U/L (13-56); Albumin, Serum 3.7 g/dL (3.2-5.0); Alkaline Phosphatase 73 U/L (45-117); Bilirubin, Direct 0.06 mg/dL (0.00-0.30); Globulin 4.3 g/dL (2.2-4.2); Lipase 28 U/L (13-75)
[2023-01-01 02:31] LABS: Internal QC Validated? YES +Cl - CLEAR BKGD; Pregnancy, Serum, hCG Quali. NEGATIVE Negative
[2023-01-01 03:02] VITALS: BP 108/77; PULSE 67; RESP 15; O2SAT 99
[2023-01-01] MEDS: Ketorolac 30 MG/ML Syringe IV (04:08)
[2023-01-01] MEDS: Morphine 4 MG/ML Syringe IV (04:08)
--- NOTE | 2023-01-01 04:56 | US_ITS ---
INDICATION: Pain, vomiting EXAMINATION: US Abdomen RUQ (limited) TECHNIQUE: Kennedy scale and color doppler imaging was performed of the right upper quadrant. COMPARISON: None. FINDINGS: LIVER: There is mild increased echogenicity. No focal hepatic lesion. No significant intrahepatic biliary ductal dilatation. The right lobe of liver measures 16.2 cm in length. GALLBLADDER AND BILIARY TREE: Distended gallbladder measures up to 10.5 cm length. Multiple shadowing stones within gallbladder lumen. No significant gallbladder wall thickening or pericholecystic fluid demonstrated. The proximal common bile duct measures 3.2 mm. Sonographic Horner''s sign: Negative. PANCREAS: Obscured by bowel gas. RIGHT KIDNEY: Right kidney measures 11.3 cm in length. No hydronephrosis. No discrete right renal lesion demonstrated. VESSELS: Unremarkable as visualized. US/Gallbladder IMPRESSION: Cholelithiasis with distended gallbladder but no secondary signs of acute cholecystitis. Follow-up as clinically warranted. Mild hepatic steatosis. Electronically Signed: Monster Hubbard MD at 7:58 EDT ,
[2023-01-01 06:15] VITALS: BP 118/74; PULSE 62; RESP 15; O2SAT 98
[2023-01-01 08:14] VITALS: BP 148/68; PULSE 74; RESP 16; O2SAT 99
== END 2023-01-01 08:14 | disposition home or self-care (01) ==
PROVIDERS: Emergency Provider Emergency Medicine; Visit Provider Emergency Medicine
DX: K80.70 Calculus of gallbladder and bile duct without cholecystitis without obstruction (principal); E66.9 Obesity, unspecified; Z87.891 Personal history of nicotine dependence
CPT/HCPCS: 71045; 76705; 80048; 80076; 83690; 84484; 84703; 85025; 93005; 96361; 96374; 96375; 99285; J7030; A4216; J2405

== ENCOUNTER 2023-01-05 05:12 | Emergency (ER) | payer OTHER, SELFPAY ==
[2023-01-05 05:12] VITALS: PULSE 59; RESP 18; TEMP 36.6; O2SAT 100; BMI 40.8
[2023-01-05 05:17] VITALS: BP 107/92
--- NOTE | 2023-01-05 05:24 | ED.VIS.GI ---
HPI HPI - GI History of Present Illness Chief Complaint: Abd Pain Informant: patient Abdominal Pain/Flank Pain Onset: Today Context: Sudden Onset Timing: Continuous Quality: Aching and Sharp Location: Epigastric and RUQ Worsened by: Food Relieved by: - (Hot bath) Nausea/Vomiting/Emesis GI Symptom: Positive for Nausea and Vomiting Quality: Positive for Nonbilious; Negative for Blood streaks, Coffee ground or Hematemesis Diarrhea/Melena/Hematochezia GI Symptom: Negative for Diarrhea, Melena or Hematochezia Associated Symptoms Associated Symptoms: Positive for Frequency; Negative for Dysuria or Hematuria Narrative Narrative: Patient presents with abdominal pain that became worse again today. Patient states she was supposed to have a cholecystectomy done yesterday however it was canceled. Patient states she had meatloaf for dinner last night. Patient states she woke up early this morning with pain in her right upper abdomen. Patient states it started in her back and then radiated to her chest and then to her right upper quadrant. Patient describes it as sharp and aching. Patient states it has been waxing and waning. Patient states he got somewhat better with taking a hot bath. Patient admits to some nausea and vomiting. Patient denies any hematemesis or coffee-ground emesis. Patient denies any diarrhea, melena, or hematochezia. Patient states her last menstrual period was approximately 2 weeks ago. Patient admits to some urinary frequency but denies any dysuria or hematuria. [facility] Medical History (Updated 01/05/23 @ 06:[address] Shai Hayward, DO) Cholecystectomy planned Depression Rh negative status during Home Medications PNV 153-FA 400 mcg-om3 35 mg-dha 25 mg-epa 5 mg-fish oil chew tablet ( Gummies) 2 tab PO DAILY 09/06/22 [History Last Taken 2 Days Ago ~09/04/22] acetaminophen 500 mg tablet 1,000 mg PO Q6H PRN PRN Pain 1-10 Or Fever #0 tabs 09/08/22 [Rx Last Taken Unknown] ibuprofen 600 mg tablet 600 mg PO Q6H PRN PRN Pain Score 1-3 #0 tabs 09/08/22 [Rx Last Taken Unknown] ondansetron 4 mg disintegrating tablet 4 mg PO Q6H PRN nausea and vomiting #7 tabs 01/01/23 [Rx Last Taken Unknown] Allergy/AdvReac Type Severity Reaction Status Date / Time No Known Allergies Allergy Verified 01/05/23 05:16 Surgical History no surgical history no surgical history Social History Smoking Status: Former smoker ROS ROS ED Constitutional Constitutional ED: Denies chills or fever(s) Eyes Eyes: Denies blurry vision or change in vision ENT ENT ED: Denies rhinorrhea or sore throat Cardiovascular Cardiovascular: Reports chest pain; Denies palpitations Respiratory/Chest Respiratory/Chest: Reports dyspnea; Denies cough Gastrointestinal Gastrointestinal: Reports abdominal pain, nausea and vomiting Genitourinary Genitourinary ED: Denies dysuria or hematuria Musculoskeletal Musculoskeletal: Reports back pain; Denies neck pain Integumentary Denies abscess or rash Neurologic Neurologic: Denies headache(s) or weakness Allergic/Immunologic Allergic/Immunologic ED: Denies mouth swelling or urticaria EXAM Physical Exam Const Vital Signs: 01/05/23 05:12 01/05/23 05:17 Temperature 97.8 F Temperature Source Oral Pulse Rate 59 L Respiratory Rate 18 Blood Pressure 107/92 H Blood Pressure Mean 97 Pulse Ox 100 Oxygen Delivery Method Room Air Positive well nourished, well developed and obese General Appearance ED: well developed and NAD Nutritional Appearance: obese HEENT Reports moist mucous membranes Neck supple and no JVD Resp normal respiratory effort and clear to auscultation bilaterally Cardio regular rate, regular rhythm and no murmurs GI normal to inspection, nondistended, normoactive bowel sounds Palpation: soft, tender epigastric and RUQ, guarding and rebound tenderness present Extremity normal to inspection General Extremety ED: Negative for edema or tenderness General Extremity: Negative for edema Neuro oriented x3, CN's II-XII intact bilaterally and no sensory deficits noted Sensorium / Orientation: alert Motor Exam: strength 5/5 throughout Psych mental status grossly normal Skin no rashes or lesions noted MDM MDM MDM Narrative Medical decision making narrative: Differential diagnosis includes cholecystitis, cholelithiasis, pancreatitis, and gastritis. CBC will be obtained to assess for leukocytosis and anemia. Comprehensive metabolic profile will be obtained to assess for hepatic function, renal function, and electrolyte abnormality. Lipase will be obtained to assess for pancreatitis. Patient had a right upper quadrant ultrasound done 2 days ago which showed cholelithiasis but no evidence of acute cholecystitis. I do not feel this needs to be repeated at this time. Lab Data Attestation: I reviewed the patient's lab results. Lab results narrative: CBC was reviewed and was within normal limits. Comprehensive metabolic profile was reviewed and was essentially within normal limits. Lipase was reviewed and was negative. Serum hCG was reviewed and was negative. Labs: Laboratory Results - last 24 hr 01/05/23 01/05/23 01/05/23 05:20 05:20 05:20 WBC 6.9 RBC 5.01 Hgb 11.9 L Hct 38.5 MCV 76.8 L MCH 23.8 L MCHC 30.9 L RDW Std Deviation 36.5 RDW Coeff of Tony 13.2 Plt Count 219 MPV 9.0 Immature Gran % (Auto) 0.400 Neut % (Auto) 59.8 Lymph % (Auto) 30.5 [place] % (Auto) 6.8 Eos % (Auto) 1.9 Baso % (Auto) 0.6 Absolute Neuts (auto) 4.1 Absolute Lymphs (auto) 2.10 Nucleated RBC % 0 Sodium 140 Potassium 4.3 Chloride 108 H Carbon Dioxide 25.0 Anion Gap 7 BUN 15 Creatinine 0.86 Estim Creat Clear Calc 98.09 Est GFR (MDRD) Af Amer 104 Est GFR (MDRD) Non-Af 86 BUN/Creatinine Ratio 17.4 Glucose 116 H Calcium 9.1 Total Bilirubin 0.20 AST 13 L ALT 39 Alkaline Phosphatase 74 Total Protein 7.7 Albumin 3.7 Globulin 4.0 Albumin/Globulin Ratio 0.9 Lipase 34 Serum , Qual NEGATIVE Treatment and Re-Evaluation :: Patient was given IV fluids, morphine, and Zofran. Patient was feeling better on reevaluation. Patient was instructed to eat a bland diet. Patient was instructed to avoid fried foods fatty foods, and greasy foods. Patient was instructed to follow-up with her surgeon as scheduled. Patient understood and was agreeable with the plan. All questions were answered. Discharge Plan Triage Chief Complaint: Abd Pain ED Provider: Shai Hayward Dx/Rx/DC Orders Clinical Impression: Biliary colic, Cholelithiasis Instructions: ED Abdominal Pain Gallstone Poss, ED Gallstones with Biliary Colic Prescriptions: No Action Gummies 400 mcg-35 mg- 25 mg-5 mg Tablet,Chewable 2 tab PO DAILY acetaminophen 500 mg Tablet 1,000 mg PO Q6H PRN PRN (Reason: Pain 1-10 Or Fever) Qty: 0 0RF ibuprofen 600 mg Tablet 600 mg PO Q6H PRN PRN (Reason: Pain Score 1-3) Qty: 0 0RF ondansetron 4 mg tablet,disintegrating 4 mg PO Q6H PRN (Reason: nausea and vomiting) Qty: 7 0RF Primary Care Provider: Care Physician,No Primary Referrals: Ilia Casillas MD [Med Staff - Active Staff] - Keep [facility] appointment Care Physician,No Primary [Primary Care Provider] - Disposition Disposition: Home, Self Care
[2023-01-05] MEDS: Morphine 4 MG/ML Syringe IV (05:41)
[2023-01-05] MEDS: Ondansetron 4 MG/2 ML Vial IV (05:41)
[2023-01-05] MEDS: 0.9% Normal Saline 1,000 ML 1000 ML IV (05:42)
[2023-01-05 05:58] LABS: Absolute Neutrophil Count 4.1 X10^3/uL (2.0-7.7); Basophil# 0.04 X10^3/uL; Basophil% 0.6 % (0-1); Eosinophil# 0.13 X10^3/uL; Eosinophils% 1.9 % (0-5); Hematocrit 38.5 % (37-47); Hemoglobin 11.9 g/dL (12.0-15.0); Lymphocyte % 30.5 % (19-41); Mean Corp Hgb Conc 30.9 g/dL (32-36); Mean Corpuscular Hgb 23.8 pg (27.0-32.0); Mean Corpuscular Volume 76.8 fL (81-99); Monocyte# 0.47 X10^3/uL; Monocyte% 6.8 % (0-10); NRBC Flagged by Analyzer 0 % (0-5); Neutrophil # 4.11 X10^3/uL (2.7-7.7); Neutrophil % 59.8 % (47-70); Platelet Count 219 K/mm3 (150-450); RBC Distribution Width CV 13.2 % (11.6-14.6); RBC Distribution Width SD 36.5 fl (35.1-43.9); Red Blood Count 5.01 M/mm3 (4.2-5.4); White Blood Count 6.9 K/mm3 (4.4-11.0)
[2023-01-05 06:16] LABS: Internal QC Validated? YES +Cl - CLEAR BKGD; Pregnancy, Serum, hCG Quali. NEGATIVE Negative
[2023-01-05 06:23] LABS: ALB/GLOB Ratio 0.9 RATIO (0.9-2.4); AST(SGOT) 13 U/L (15-37); Alanine Aminotransfer ALT/SGPT 39 U/L (13-56); Albumin, Serum 3.7 g/dL (3.2-5.0); Alkaline Phosphatase 74 U/L (45-117); Anion Gap 7 (5-15); BUN 15 mg/dL (7-18); BUN/Creat Ratio 17.4 RATIO (10-20); Calcium,Total 9.1 mg/dL (8.5-10.1); Chloride 108 mmol/L (98-107); Creatinine, Serum 0.86 mg/dL (0.55-1.02); EST Glomerular Filtration Rate 86 mL/min (>60); Est Glom Filt Rate - Afr Amer 104 mL/min (>60); Estimated Creatinine Clearance 98.09 ml/min; Glucose 116 mg/dL (74-106); Lipase 34 U/L (13-75); Potassium 4.3 mmol/L (3.5-5.1); Protein, Total 7.7 g/dL (6.4-8.2); Sodium Level 140 mmol/L (136-145)
== END 2023-01-05 06:39 | disposition home or self-care (01) ==
PROVIDERS: Emergency Provider Emergency Medicine; Visit Provider Emergency Medicine
DX: K80.50 Calculus of bile duct without cholangitis or cholecystitis without obstruction (principal); Z87.891 Personal history of nicotine dependence; K80.20 Calculus of gallbladder without cholecystitis without obstruction; Z79.1 Long term (current) use of non-steroidal anti-inflammatories (NSAID)
CPT/HCPCS: 80053; 83690; 84703; 85025; 96361; 96374; 96375; 99283; J7030; A4216; J2405

== ENCOUNTER 2024-03-23 07:46 | Inpatient (IN) | payer OTHER, SELFPAY ==
[2024-03-23] VITALS (90 sets, daily range): BP systolic 110–151; BP diastolic 55–84; PULSE 67–122; RESP 16–18; TEMP 36.1–37.3; O2SAT 82–100; BMI 40.7
[2024-03-23] MEDS: Lactated Ringers 1,000 ML 50 ML IV (08:10)
[2024-03-23] MEDS: 0.9% Normal Saline Single 100 ML IV.SOLN. INTRA-UTER (08:15)
--- NOTE | 2024-03-23 08:29 | PCM.HP.OB ---
HPI - General General Date of Admission: 03/23/24 HPI Narrative MARIEL PHOENIX, is a 23 F at 40 weeks who presents at with MARINA: 03/23/24 with admission for elective induction of labor. Maternal Data Information Final MARINA: 03/23/24 [facility] Medical History (Updated 03/24/24 @ 12:51 by Tamiko Molina CNM) Anxiety Cholecystectomy planned Rh negative status during Depression Home Medications ?Medication ?Instructions ?Recorded ?Last Taken ?Type PNV 153-FA 400 mcg-om3 35 mg-dha 2 tab PO DAILY 09/06/22 03/22/24 21:00 History 25 mg-epa 5 mg-fish oil chew tablet ( Gummies) aspirin 81 mg chewable tablet 1 tab PO DAILY 03/23/24 Unknown History (Aspirin Childrens) diphenhydramine HCl 50 mg/30 mL 50 mg PO QHS PRN sleep 03/23/24 Unknown History oral liquid famotidine 20 mg tablet 20 mg PO BID acid reflux 03/23/24 03/22/24 12:00 History Allergy/AdvReac Type Severity Reaction Status Date / Time No Known Allergies Allergy Verified 03/23/24 07:30 Social History Smoking Status: Never smoker History Elective abortions Hx Para 1 Spontaneous abortions Hx # Term Pregnancies Ectopic pregnancies Hx # Pregnancies Multiple births # of living children NST FHR Rate Baby A Baseline: 145 Variability:: Moderate Accelerations:: 15 x 15 Decelerations:: None FHR Category:: Category I Uterine Activity:: Irregular contractions ROS Constitutional Constitutional: Reports systems reviewed and no addt'l complaints, except as documented; Denies headache(s) Eyes Eyes: Denies acute decrease in peripheral vision, blurry vision or change in vision ENT HEENT: Reports systems reviewed and no addt'l complaints, except as documented Cardiovascular Cardiovascular: Denies chest pain or dizziness Respiratory/Chest Respiratory/Chest: Denies cough, dyspnea, dyspnea on exertion, shortness of breath at rest or shortness of breath with exertion Gastrointestinal Gastrointestinal: Denies abdominal pain, diarrhea, nausea or vomiting Genitourinary Genitourinary: Denies abdominal discomfort Musculoskeletal Musculoskeletal: Denies limited range of motion Integumentary Integumentary: Reports systems reviewed and no addt'l complaints, except as documented Neurologic Neurologic: Reports systems reviewed and no addt'l complaints, except as documented Psychiatric Psychiatric: Reports systems reviewed and no addt'l complaints, except as documented Endocrine Endocrinology: Reports systems reviewed and no addt'l complaints, except as documented Hematologic/Lymphatic Hematologic/Lymphatic: Reports systems reviewed and no addt'l complaints, except as documented Allergic/Immunologic Allergic/Immunologic: Reports systems reviewed and no addt'l complaints, except as documented Vital Signs Vital Signs Vital Signs: Weight Weight: 268 lb Body Mass Index (BMI) 40.7 Physical Exam Const alert and oriented x3 General Appearance: cooperative Orientation / Consciousness: awake, oriented to person, oriented to place and oriented to time Exam Limitations: no limitations HEENT normocephalic Head and Scalp: normal to inspection, normocephalic and atraumatic Face and Sinus: normal facial exam Eyes General Eye: normal appearance of both eyes Neck full ROM Chest Chest: symmetrical chest wall rise Resp normal respiratory effort and normal air movement Auscultation: clear to auscultation bilaterally Cardio regular rate, regular rhythm, S1 normal heart sound, S2 normal heart sound, no murmurs, no rub, no gallops and no clicks GI normal to inspection, nondistended, normoactive bowel sounds and non-tender appearance of the vagina normal Bladder / Kidney Exam: no CVA tenderness Manual OB Exam: estimated gestational size appropriate, presentation cephalic, dilated 2cm, effaced 50%, station -3 and other Silva balloon inserted with stylus with 30nl NS and tolerated well. Amniotic Fluid: no amniotic fluid noted Back/Spine normal ROM Extremity normal to inspection and full ROM Skin no rashes or lesions noted Neuro oriented x3, CN's II-XII intact bilaterally and moves all extremities Sensorium / Orientation: awake, alert and oriented to person Motor Exam: clonus absent Deep Tendon Reflexes: Rt Patellar (L4): 2+ and Lt Patellar (L4): 2+ Labs Labs Labs: Blood Type A NEGATIVE Antibody Screen NEGATIVE Hct 32.9 % (37-47) L Hgb 10.6 g/dL (12.0-15.0) L Syphilis Total Ab Non-reactive Assessment & Plan (1) Encounter for induction of labor: (2) 40 weeks gestation of : (3) Encounter for planned induction of labor: (4) Obesity affecting : COMMENT: PPD#1 (5) Positive GBS test: (6) Rh negative status during : (7) Rubella non-immune status, antepartum: PLAN: Plan 1) Admit to labor and delivery 2) Routine labs 3) GBS prophylaxis 4) Silva and pitocin for active management 5) Continuous EFM 6) Planning epidural for pain management 7) collaborative physician and notified of patient status.
[2024-03-23] MEDS: Penicillin G Pot 5,000,000 UNITS in 0.9% Normal Saline (100mL MB+) 100 ML 150 UNITS IV (08:33)
[2024-03-23] MEDS: Oxytocin 15 Units/NS 250ml 15 UNITS/250 ML IV.SOLN 2 UNITS IV (08:34)
[2024-03-23 09:01] LABS: Absolute Lymphocyte Count 1.99 X10^3/uL (0.83-4.51); Absolute Neutrophil Count 3.3 X10^3/uL (2.0-7.7); Basophil# 0.02 X10^3/uL; Basophil% 0.3 % (0-1); Eosinophil# 0.03 X10^3/uL; Eosinophils% 0.5 % (0-5); Hematocrit 32.9 % (37-47); Hemoglobin 10.6 g/dL (12.0-15.0); Lymphocyte # 1.99 X10^3/ul (0.83-4.51); Lymphocyte % 34.4 % (19-41); Mean Corp Hgb Conc 32.2 g/dL (32-36); Mean Corpuscular Hgb 24.1 pg (27.0-32.0); Mean Corpuscular Volume 74.9 fL (81-99); Mean Platelet Vol. 9.4 fl (6.2-12.0); Monocyte# 0.38 X10^3/uL; Monocyte% 6.6 % (0-10); NRBC Flagged by Analyzer 0 % (0-5); Neutrophil # 3.34 X10^3/uL (2.7-7.7); Neutrophil % 57.9 % (47-70); Platelet Count 185 K/mm3 (150-450); RBC Distribution Width CV 14.5 % (11.6-14.6); RBC Distribution Width SD 38.2 fl (35.1-43.9); Red Blood Count 4.39 M/mm3 (4.2-5.4); White Blood Count 5.8 K/mm3 (4.4-11.0)
[2024-03-23 11:36] LABS: Syphilis Antibodies Non-reactive
--- NOTE | 2024-03-23 12:11 | PCM.PN.OB ---
Subjective Subjective Resting in bed and coping well. Walked the halls. Father of baby at bedside. Objective Data Objective Data Vital Signs: Vital Signs Temp Pulse Resp BP Pulse Ox 99.2 F H 84 16 129/71 H 99 03/23/24 09:59 03/23/24 12:09 03/23/24 09:59 03/23/24 09:59 03/23/24 12:09 Weight: 268 lb Body Mass Index (BMI) 40.7 Intake & Output: Intake and Output for Last 24 Hours 03/21/24 03/22/24 03/23/24 23:59 23:59 23:59 Intake Total 138.03 / 138.03 Balance 138.03 / 138.03 Lab / Micro Data 03/23/24 08:10 Labs: Laboratory Results - last 24 hr 03/23/24 08:10: WBC 5.8, RBC 4.39, Hgb 10.6 L, Hct 32.9 L, MCV 74.9 L, MCH 24.1 L, MCHC 32.2, RDW Std Deviation 38.2, RDW Coeff of Tony 14.5, Plt Count 185, MPV 9.4, Immature Gran % (Auto) 0.300, Neut % (Auto) 57.9, Lymph % (Auto) 34.4, [place] % (Auto) 6.6, Eos % (Auto) 0.5, Baso % (Auto) 0.3, Absolute Neuts (auto) 3.3, Absolute Lymphs (auto) 1.99, Nucleated RBC % 0, Syphilis Total Ab Non-reactive, Blood Type A NEGATIVE, Antibody Screen NEGATIVE Physical Exam Narrative: /-2, AROM clear fluid, tolerated well NST FHR Rate Baby A Baseline: 145 Variability:: Moderate Accelerations:: 15 x 15 Decelerations:: Variable FHR Category:: Category I and Category II Uterine Activity:: every 2-4 Assessment & Plan (1) Encounter for induction of labor: PLAN: Plan 1) Continue with active management 2) GBS prophylaxis 3) AROM 4) Epidural for pain management 5) update on patient status.
[2024-03-23] MEDS: Lactated Ringers 1,000 ML 999 ML IV (12:29)
[2024-03-23] MEDS: fentaNYL-bupivacaine (epidural) 100 ML BAG EPIDURAL ×2 (13:24→17:35)
[2024-03-23] MEDS: Penicillin G 3,000,000 Units 50 ML 100 UNITS IV ×2 (13:39→19:35)
[2024-03-23] MEDS: Lactated Ringers 1,000 ML 200 ML IV ×2 (14:17→20:48)
[2024-03-23] MEDS: LACTATED RINGERS 500 ML 999 ML IV (21:08)
--- NOTE | 2024-03-23 21:45 | EX.PCM.OBRPT ---
Maternal Data Information Final MARINA: 03/23/24 Gestational age: 40 0/7 Vaginal Delivery Maternal Presentation Maternal Presentation: Medically Indicated Induction Type of Induction: Pitocin, Silva Bulb and Amniotomy Medical Reason for Induction: - (maternal obesity) Operative Information Date of Procedure: 03/23/24 Pre-Operative Diagnosis: labor Post-Operative Diagnosis: same Surgery / Procedure Performed: Spontaneous Vaginal Delivery Type of Anesthesia: Epidural Drain: Silva to straight drain Estimated Blood Loss: 200 Time of Delivery: 21:29 Findings Description of Procedure: A vigorous female was delivered VIKTORIA over an intact perineum. A loose nuchal cord ?1 was easily reduced. The remainder the was delivered with maternal pushing and gentle traction only in less than 15 seconds. The Pitocin infusion was initiated for active management of the third stage. The cord was clamped and cut after cord pulsations ceased. The infant was attended to by the waiting nursing staff. The placenta was delivered spontaneously and intact. The cervix and vagina were intact. Sponge and needle counts were correct. A vaginal sweep was completed by me. Presentation: VIKTORIA Amniotic Membrane Rupture Type: Artificial Amniotic Fluid Description: Clear Placental Delivery Description: Spontaneous Placenta Disposition: [facility] Cord Vessel Description: 3 Vessels Cord Entanglement: Around neck x 1, loose Nuchal Cord Compression: Without compression A Gender: Female (1 minute): 8 (5 minute): 9 Delayed Cord Clamping: Yes Post Vaginal Delivery Medications Given After Delivery: IV Pitocin Episiotomy Description: None Laceration: None Complication Complications: None
[2024-03-23] MEDS: Oxytocin 15 Units/NS 250ml 15 UNITS/250 ML IV.SOLN 83 UNITS IV (22:14)
[2024-03-24 04:56] VITALS: BP 134/77; PULSE 80; RESP 16; TEMP 36.9; O2SAT 99
[2024-03-24] MEDS: Rho(D) Immune Globulin 300 MCG (1500 Unit) Syringe IV (06:15)
[2024-03-24] MEDS: 0.9% Saline Lock 10 ML Syringe IV (06:20)
[2024-03-24] MEDS: Ibuprofen 600 MG Tablet PO ×2 (07:14→22:33)
--- NOTE | 2024-03-24 08:01 | PCM.DC.SUM ---
Providers Date of Admission: 03/23/24 Primary Care Physician: No Primary Care Phys Reason For Visit: INDUCTION Medications at Discharge Home Medications PNV 153-FA 400 mcg-om3 35 mg-dha 25 mg-epa 5 mg-fish oil chew tablet ( Gummies) 2 tab PO DAILY 09/06/22 aspirin 81 mg chewable tablet (Aspirin Childrens) 1 tab PO DAILY 03/23/24 diphenhydramine HCl 50 mg/30 mL oral liquid 50 mg PO QHS PRN sleep 03/23/24 famotidine 20 mg tablet 20 mg PO BID acid reflux 03/23/24 Hospital Course Operations None Procedures - () Summary of Care Provided Minutes Spent on Discharge: 18 Hospital Course: 23-year-old 2 para 1 admitted on 03/23/2024 for induction of labor due to maternal obesity. She had a spontaneous vaginal delivery on May 24, 2024 without complication. By day #1 she was ambulating, urinating tolerating daily diet without difficulty and desired discharge home with routine instructions and follow-up. Weight / BMI Weight Weight: 121.563 kg Body Mass Index (BMI) 40.7 ABG / Lab / Microbiology Data 03/23/24 08:10 Laboratory: Laboratory Results - last 24 hr 03/23/24 08:10: WBC 5.8, RBC 4.39, Hgb 10.6 L, Hct 32.9 L, MCV 74.9 L, MCH 24.1 L, MCHC 32.2, RDW Std Deviation 38.2, RDW Coeff of Tony 14.5, Plt Count 185, MPV 9.4, Immature Gran % (Auto) 0.300, Neut % (Auto) 57.9, Lymph % (Auto) 34.4, [place] % (Auto) 6.6, Eos % (Auto) 0.5, Baso % (Auto) 0.3, Absolute Neuts (auto) 3.3, Absolute Lymphs (auto) 1.99, Nucleated RBC % 0, Syphilis Total Ab Non-reactive, Blood Type A NEGATIVE, Antibody Screen NEGATIVE 03/23/24 23:05: Screen NEGATIVE, Baby's Blood Type O POSITIVE, Baby's ANGELICA NEGATIVE D/C Instructions May resume sexual activity in: 6 weeks Please Follow Up With: Kayy Molina MD When: Follow up with our office in 1-2 and 6 weeks or as needed. [phone] Meaningful Use Info Meaningful Use Meaningful Use Diagnoses (Choose all that apply): None applicable Ischemic Stroke Statin Dosing Therapy Reference: STATIN DOSE THERAPY REFERENCE: * Patients > 75 years receive moderate or high dose statin therapy. * Patients 75 years or YOUNGER should receive HIGH intensity statin dose unless contraindicated. You will be required to document reason for non-treatment if statin daily dose does not meet guidelines. HIGH DOSE STATIN THERAPY DAILY Atorvastatin > than or = to 40 mg Rosuvastatin > than or = to 20 mg Amlodipine + Atorvastatin > than or = to 2.5/40 mg Ezetimibe + Simvastatin 10/80 mg Simvastatin 80mg Discharge Plan Admission Admit Date/Time: 03/23/24 07:46 Primary Reason for Your Visit: Attending Provider: Pam Bhatia Primary Care Provider: Care Physician,Agnes Primary Discharge Orders/Prescriptions Prescriptions: No Action Gummies 400 mcg-35 mg- 25 mg-5 mg Tablet,Chewable 2 tab PO DAILY famotidine 20 mg tablet 20 mg PO BID aspirin [Aspirin Childrens] 81 mg tablet,chewable 1 tab PO DAILY diphenhydramine HCl 50 mg/30 mL liquid 50 mg PO QHS PRN (Reason: sleep) Referrals / Follow Up: Care Physician,No Primary [Primary Care Provider] - Disposition Disposition (needs filled in before D/C Order can be placed): Home, Self Care
[2024-03-24 08:53] VITALS: BP 124/56; PULSE 86; RESP 16; TEMP 36.4; O2SAT 98
[2024-03-24 11:35] VITALS: BP 122/76; PULSE 93; RESP 16; TEMP 36.4; O2SAT 100
[2024-03-24] MEDS: Famotidine 20 MG Tablet PO (14:05)
[2024-03-24 15:25] VITALS: BP 130/74; PULSE 79; RESP 16; TEMP 36.1; O2SAT 99
[2024-03-24 20:20] VITALS: BP 135/77; PULSE 90; RESP 16; TEMP 36.3; O2SAT 100
[2024-03-24] MEDS: Acetaminophen 500 MG Tablet 1000 MG PO (20:23)
== END 2024-03-24 22:40 | disposition home or self-care (01) | DRG 807 ==
PROVIDERS: Advanced Practice Midwife; Admitting Provider Obstetrics & Gynecology; Referring Provider Obstetrics & Gynecology; Visit Provider Obstetrics & Gynecology
DX: O26.03 Excessive weight gain in pregnancy, third trimester (principal); Z37.0 Single live birth; O26.893 Other specified pregnancy related conditions, third trimester; O76 Abnormality in fetal heart rate and rhythm complicating labor and delivery; Z67.11 Type A blood, Rh negative; O69.81X0 Labor and delivery complicated by cord around neck, without compression, not applicable or unspecified; O99.824 Streptococcus B carrier state complicating childbirth; Z3A.40 40 weeks gestation of pregnancy; Z79.82 Long term (current) use of aspirin; Z87.891 Personal history of nicotine dependence
CPT/HCPCS: 59025; 59050; 85025; 85461; 86780; 86850; 86900; 86901; 90384; 99221; J7120; A4216; G0378; J2790; J2791

== ENCOUNTER 2024-07-02 08:22 | Day surgery (SDC) | payer OTHER, SELFPAY ==
[2024-07-02] VITALS (7 sets, daily range): BP systolic 136–166; BP diastolic 72–88; PULSE 76–106; RESP 16–18; TEMP 36.2–36.5; O2SAT 99–100; BMI 40.5
[2024-07-02] MEDS: Lactated Ringers 1,000 ML 15 ML IV (09:08)
[2024-07-02] MEDS: Ketorolac 30 MG/ML Syringe IV (09:08)
[2024-07-02 09:09] LABS: Internal QC Validated? YES +Cl - CLEAR BKGD; Pregnancy, Urine Negative Negative
[2024-07-02] MEDS: Acetaminophen 500 MG Tablet 1000 MG PO (09:09)
[2024-07-02 09:11] LABS: Hematocrit 35.3 % (37-47); Hemoglobin 11.2 g/dL (12.0-15.0); Mean Corp Hgb Conc 31.7 g/dL (32-36); Mean Corpuscular Hgb 24.3 pg (27.0-32.0); Mean Corpuscular Volume 76.6 fL (81-99); Mean Platelet Vol. 9.3 fl (6.2-12.0); Platelet Count 200 K/mm3 (150-450); RBC Distribution Width CV 14.2 % (11.6-14.6); RBC Distribution Width SD 39.4 fl (35.1-43.9); Red Blood Count 4.61 M/mm3 (4.2-5.4); White Blood Count 5.4 K/mm3 (4.4-11.0)
[2024-07-02] MEDS: Bupivacaine Mpf 0.5% 30 ML VIAL (10:21)
== END 2024-07-02 11:27 | disposition home or self-care (01) ==
LOC: SDC 08:23 → AC 08:25
PROVIDERS: PCP Physician Assistant; Referring Provider Obstetrics & Gynecology; Visit Provider Obstetrics & Gynecology
PROC: (CPT 58661; principal; 2024-07-02 09:55)
DX: Z30.2 Encounter for sterilization (principal); N83.8 Other noninflammatory disorders of ovary, fallopian tube and broad ligament; F32.A Depression, unspecified; F41.9 Anxiety disorder, unspecified; Z79.899 Other long term (current) drug therapy
CPT/HCPCS: 58661; 00840; 81025; 85027; 88302; J7120; C1760; J2405